=== PATIENT | male | born 1955 | race African-American/Black ===

== ENCOUNTER 2020-02-04 20:45 | Emergency (ER) | payer MEDICAID ==
[~2020-02-04] VITALS: Ht 188 cm; Wt 112.5 kg
[2020-02-04 20:53] VITALS: Ht 188 cm; Wt 112.5 kg
[2020-02-04 21:44] VITALS: BP 159/75
== END 2020-02-04 21:44 | disposition home or self-care (01) ==
LOC: ED 20:45
DX: M75.101 Unspecified rotator cuff tear or rupture of right shoulder, not specified as traumatic (principal); I10 Essential (primary) hypertension; E11.9 Type 2 diabetes mellitus without complications; Z88.0 Allergy status to penicillin; Z88.6 Allergy status to analgesic agent; Z98.890 Other specified postprocedural states; W18.09XA Striking against other object with subsequent fall, initial encounter; Y93.89 Activity, other specified; Y92.89 Other specified places as the place of occurrence of the external cause; Y99.8 Other external cause status
CPT/HCPCS: J2270; Q0092